=== PATIENT | female | born 1970 | race Caucasian/White ===

== ENCOUNTER → 2020-07-12 | Outpatient (CLI) | payer OTHER ==
--- NOTE | 2020-07-12 10:30 | REPMRS ---
Patient History The patient states she had a clinical breast exam in June 2020. Family history of unknown cancer in maternal cousin. 3D TOMOSYNTHESIS WAS PERFORMED. [facility] lifetime risk for breast cancer is 10.9%. Volpara breast density c. Digital Woman Screen Mammo: July 12, 2020 - Exam #: [id number] Bilateral CC and MLO view(s) were taken. Technologist: Leonora Bishop, Technologist FINDINGS: The breast tissue is heterogeneously dense. This may lower the sensitivity of mammography. There has been no change in the appearance of the mammogram from the prior studies. There is a moderate amount of residual fibroglandular tissue which is fairly symmetric. There is no interval development of dominant mass, areas of architectural distortion, or clustered microcalcification typical of malignancy. Assessment: BI-RADS/ACR category 1 mammogram. Negative Mammogram. Recommendation Routine screening mammogram in 1 year (for women over age 40). This mammogram was interpreted with the aid of an FDA-approved computer-aided dectection system. Electronically Signed By: Marcello Durán MD 07/12/20 [id number]
== END ==
LOC: M WHC 09:19
PROVIDERS: ATTEND Obstetrics & Gynecology
DX: Z12.31 Encounter for screening mammogram for malignant neoplasm of breast (principal)

== ENCOUNTER → 2021-07-04 | Outpatient (CLI) | payer OTHER ==
[2021-07-04 18:02] LABS: BASO # 0.1 10^3/uL (0.0-0.2); BASO % 0.5 % (0.0-1.0); EOS # 0.1 10^3/uL (0.0-0.5); EOS % 0.9 % (0.0-3.0); HEMATOCRIT 39.1 % (36.0-47.0); HEMOGLOBIN 13.1 g/dl (12.0-15.5); LYMPH # 3.1 10^3/uL (1.5-5.0); LYMPH % 32.4 % (24.0-44.0); MEAN CORPUSCULAR HEMOGLOBIN 30.4 pg (27.0-33.0); MEAN CORPUSCULAR HGB CONC 33.5 g/dl (32.0-36.5); MEAN CORPUSCULAR VOLUME 90.7 fl (80.0-96.0); MONO # 0.5 10^3/uL (0.0-0.8); MONO % 5.3 % (2.0-8.0); NEUTROPHILS # 5.8 10^3/uL (1.5-8.5); NEUTROPHILS % 60.6 % (36.0-66.0); PLATELET COUNT, AUTOMATED 283 10^3/uL (150-450); RED BLOOD COUNT 4.31 10^6/uL (4.00-5.40); WHITE BLOOD COUNT 9.6 10^3/uL (4.0-10.0)
[2021-07-04 18:35] LABS: FREE T4 1.06 NG/DL (0.76-1.46); THYROID STIMULATING HORMONE 1.21 uIU/ML (0.358-3.740)
== END ==
LOC: M LAB 17:05
PROVIDERS: ATTEND Obstetrics & Gynecology
DX: N92.1 Excessive and frequent menstruation with irregular cycle (principal)

== ENCOUNTER → 2021-08-15 | Outpatient (CLI) | payer OTHER ==
[~2021-08-15] MED LIST: D31000TA PO; VITMTA PO
== END ==
LOC: M LABSMTC 09:39
PROVIDERS: ATTEND Anesthesiology
DX: Z01.812 Encounter for preprocedural laboratory examination (principal); Z11.52 Encounter for screening for COVID-19

== ENCOUNTER 2021-08-18 06:13 | Day surgery (SDC) | payer OTHER ==
[~2021-08-18] VITALS: Ht 149.9 cm; Wt 67.1 kg
[~2021-08-18 06:13] MED LIST changes: +LR 1,000 ML IV ONE
[2021-08-18] MEDS ORDERED: HYDROmorphone HCL 2 MG/ML 1ML VIAL As Ordered ONE (07:11)
[2021-08-18] MEDS ORDERED: propofoL 200 MG/20 ML VIAL As Ordered ONE (07:13)
[2021-08-18] MEDS ORDERED: MIDAZOLAM INJ 2MG/2ML VIAL (J2250 PER 1MG) As Ordered ONE (07:13)
[2021-08-18] MEDS ORDERED: ONDANSETRON 4MG/2ML VIAL As Ordered ONE (07:13)
[2021-08-18] MEDS ORDERED: KETOROLAC 60MG 2ML VIAL As Ordered ONE (07:13)
[2021-08-18] MEDS ORDERED: dexameTHASONE 4 MG/ML 1ML VIAL (J1100 PER 1MG) As Ordered ONE (07:13)
[2021-08-18] MEDS ORDERED: LIDOCAINE 2% 100MG/5ML SDV (FOR ANES.) As Ordered ONE (07:14)
[2021-08-18] MEDS ORDERED: ePHEDrine SULFATE 25 MG/5 ML(5MG/ML) SYRINGE As Ordered ONE (07:52)
[2021-08-18] MEDS ORDERED: ACETAMINOPHEN 1000MG 100ML IV BTL (OFIRMEV) (J0131 PER 10MG) As Ordered ONE (07:52)
[2021-08-18] MEDS ORDERED: fentaNYL 100 MCG/2 ML INJECTION (J3010) IV PRN (08:25)
[2021-08-18] MEDS ORDERED: ONDANSETRON 4MG/2ML VIAL IV PRN (08:25)
[2021-08-18] MEDS ORDERED: oxyCODONE 5MG TAB PO PRN (08:25)
[2021-08-18] MEDS ORDERED: LR 1,000 ML IV SCH (08:25)
[2021-08-18 09:20] VITALS: BP 160/82
--- NOTE | 2021-08-18 11:16 | RO ---
OPERATIVE NOTE DATE OF OPERATION: 08/18/2021 PREOPERATIVE DIAGNOSIS/INDICATIONS FOR SURGERY: Pain and bleeding. POSTOPERATIVE DIAGNOSIS: Pain and bleeding. PROCEDURE: Dilatation and curettage with hysteroscopy and NovaSure endometrial ablation. SURGEON: Grace Barros MD CHIEF WHARFINGER: None. ANESTHESIA: LMA. DESCRIPTION OF PROCEDURE/FINDINGS: Beverley was brought to the operating room where sufficient LMA anesthesia was induced. She was prepped, draped and positioned in usual sterile fashion. The Paulie retractor was used to visualize the cervix which was grasped with single tooth tenaculum. This uterus would be accessible from below should that be necessary in the future. The bladder was emptied. Uterus was sounded, length measured at 6 at this point. We did not yet have width. It was subsequently measured at 4.5 but at this point we only had length of 6. We then dilated the cervix in order to allow introduction of the hysteroscope which was used to visualize the endometrial cavity which was normal in contour and appearance and there were no lesions consistent with her preop evaluation. Gentle curettage was carried out to smooth out the endometrium and take secondary sample and then the NovaSure ablative device was placed after a little further dilation of the cervix to allow this introduction of the device. Using the NovaSure device, length set at 6 as we had already measured, width was measured at 4.5, there was an uncomplicated cavity assessment and NovaSure ablation was carried out in routine fashion without complication. After the ablation the procedure was ended. ESTIMATED BLOOD LOSS FOR THE PROCEDURE: About 2 mL. FLUID REPLACEMENT: Crystalloid. SPECIMEN: Only the endometrial curettings as already noted. COMPLICATIONS: None. CONDITION AND DISPOSITION: Beverley tolerated the procedure well and was recovering in the recovery room in good condition.
== END 2021-08-18 09:30 | disposition home or self-care (01) ==
LOC: M SDC 06:13
PROVIDERS: ATTEND Obstetrics & Gynecology
DX: N85.00 Endometrial hyperplasia, unspecified (principal); R10.2 Pelvic and perineal pain; N93.9 Abnormal uterine and vaginal bleeding, unspecified; R87.821 Vaginal low risk human papillomavirus (HPV) DNA test positive; R06.83 Snoring; Z88.1 Allergy status to other antibiotic agents
CPT/HCPCS: 58563; 81025; 88305; J0131; J1100; J1170; J1885; J2250; J2405

== ENCOUNTER → 2022-11-30 | Outpatient (REF) | payer OTHER ==
[~2022-11-30] MED LIST changes: -LR 1,000 ML IV ONE
== END ==
LOC: M PLALAB 11:32
PROVIDERS: ATTEND Nurse Practitioner Family
DX: Z12.4 Encounter for screening for malignant neoplasm of cervix (principal)
CPT/HCPCS: 87624; G0123

== ENCOUNTER → 2022-11-30 | Outpatient (CLI) | payer OTHER | LOC: M WHC 08:21 → MERGE 08:21 | PROVIDERS: ATTEND Advanced Practice Midwife | DX: Z12.31 Encounter for screening mammogram for malignant neoplasm of breast (principal) ==

== ENCOUNTER → 2022-12-14 | Outpatient (CLI) | payer OTHER | LOC: M WHC 09:46 | PROVIDERS: ATTEND Advanced Practice Midwife | DX: R92.2 Inconclusive mammogram (principal); N63.12 Unspecified lump in the right breast, upper inner quadrant; N60.01 Solitary cyst of right breast ==

== ENCOUNTER → 2022-12-20 | Outpatient (CLI) | payer OTHER ==
[2022-12-20 14:32] VITALS: BP 118/78
== END ==
LOC: M WHCPRO 13:34
PROVIDERS: ATTEND Surgery
DX: R92.8 Other abnormal and inconclusive findings on diagnostic imaging of breast (principal); N63.21 Unspecified lump in the left breast, upper outer quadrant

== ENCOUNTER → 2023-04-24 | Day surgery (SDC) | payer OTHER ==
[~2023-04-24] VITALS: Ht 152.4 cm; Wt 65.9 kg
[~2023-04-24] MED LIST changes: +ACETAMINOPHEN 1000MG 100ML IV BAG As Ordered ONE; +HEPARIN SOD (PORCINE) 5000UNITS/ML 1ML VIAL/SYRINGE SQ ONE; +HYDROMORPHONE HCL 0.5 MG/ 0.5 ML SYRINGE IV PRN; +KETOROLAC 60MG 2ML VIAL As Ordered ONE; +LIDOCAINE 1% SDV 30ML VIAL As Ordered ONE; +LIDOCAINE 2% 100MG/5ML SDV (FOR ANES.) As Ordered ONE; +LR 1,000 ML IV SCH; +METOCLOPRAMIDE INJ 10MG/2ML VIAL As Ordered ONE; +MIDAZOLAM INJ 2MG/2ML VIAL As Ordered ONE; +ONDANSETRON 4MG 2ML VIAL As Ordered ONE; +ONDANSETRON 4MG 2ML VIAL IV PRN; +OXYC-517 PO; +ceFAZolin SOD 2 GM in IV 1 EA IV ONE; +fentaNYL 100 MCG/2 ML INJECTION As Ordered ONE; +fentaNYL 100 MCG/2 ML INJECTION IV PRN; +oxyCODONE 5MG TAB PO PRN; +propofoL 200 MG/20 ML VIAL As Ordered ONE
[2023-04-24 11:10] VITALS: BP 120/67; TEMP 97.5; O2SAT 95
== END | disposition home or self-care (01) ==
LOC: M SDC 06:26
PROVIDERS: ATTEND Surgery
DX: D24.2 Benign neoplasm of left breast (principal); R06.83 Snoring; Z88.1 Allergy status to other antibiotic agents; Z80.1 Family history of malignant neoplasm of trachea, bronchus and lung; Z80.51 Family history of malignant neoplasm of kidney; Z80.8 Family history of malignant neoplasm of other organs or systems
CPT/HCPCS: 19101; 36415; 76942; 81025; 86850; 86900; 86901; 88305; A4648; J0131; J0665; J0690; J1100; J2250; J2405; J2765; J3010

== ENCOUNTER → 2023-12-05 | Outpatient (CLI) | payer OTHER ==
[~2023-12-05] MED LIST changes: -ACETAMINOPHEN 1000MG 100ML IV BAG As Ordered ONE; -HEPARIN SOD (PORCINE) 5000UNITS/ML 1ML VIAL/SYRINGE SQ ONE; -HYDROMORPHONE HCL 0.5 MG/ 0.5 ML SYRINGE IV PRN; -KETOROLAC 60MG 2ML VIAL As Ordered ONE; -LIDOCAINE 1% SDV 30ML VIAL As Ordered ONE; -LIDOCAINE 2% 100MG/5ML SDV (FOR ANES.) As Ordered ONE; -LR 1,000 ML IV SCH; -METOCLOPRAMIDE INJ 10MG/2ML VIAL As Ordered ONE; -MIDAZOLAM INJ 2MG/2ML VIAL As Ordered ONE; -ONDANSETRON 4MG 2ML VIAL As Ordered ONE; -ONDANSETRON 4MG 2ML VIAL IV PRN; -ceFAZolin SOD 2 GM in IV 1 EA IV ONE; -fentaNYL 100 MCG/2 ML INJECTION As Ordered ONE; -fentaNYL 100 MCG/2 ML INJECTION IV PRN; -oxyCODONE 5MG TAB PO PRN; -propofoL 200 MG/20 ML VIAL As Ordered ONE
== END ==
LOC: M WHC 08:38 → MERGE 09:30
PROVIDERS: ATTEND Nurse Practitioner Family
DX: Z12.31 Encounter for screening mammogram for malignant neoplasm of breast (principal)

== ENCOUNTER → 2024-10-01 | Outpatient (CLI) | payer OTHER | LOC: M WHC 08:49 | PROVIDERS: ATTEND Nurse Practitioner Family | DX: N63.20 Unspecified lump in the left breast, unspecified quadrant (principal) | CPT/HCPCS: 77066; G0279 ==

== ENCOUNTER → 2025-04-14 | Outpatient (REF) | payer OTHER ==
[2025-04-14 16:00] LABS: Trichomonas vaginalis (AMP) NOT DETECTED (NEGATIVE)
[2025-04-14 16:23] LABS: GC DNA AMPLIFICATION NEGATIVE (NEGATIVE)
[2025-04-16 14:17] LABS: HPV APTIMA Not Detected (Not Detected)
== END ==
LOC: M SFHCWAGY 13:00
PROVIDERS: ATTEND Nurse Practitioner Family
DX: Z12.4 Encounter for screening for malignant neoplasm of cervix (principal); Z11.3 Encounter for screening for infections with a predominantly sexual mode of transmission
CPT/HCPCS: 87624; 87661; 87810; 87850; G0123